=== PATIENT | male | born 2000 | race Caucasian/White ===

== ENCOUNTER 2024-12-20 10:00 | Emergency (ER) | payer MEDICAID, SELFPAY ==
[2024-12-20 10:01] VITALS: BMI 27.3
[2024-12-20 11:01] VITALS: BP 124/86; PULSE 55; RESP 18; TEMP 36.9; O2SAT 98
--- NOTE | 2024-12-20 11:02 | EDNOTE_ITS ---
Upper Extremity Injury RME/HPI General Chief Complaint: Hand/Wrist Problems Stated Complaint: R HAND SWOLLEN X3 DAYS Time Seen by Provider: 12/20/24 10:25 Arrival date/time: 12/20/24 10:00 RME / HPI RME / HPI narrative: DR. LANE MAIN ED EVALUATION: 23 year old male with no past medical history presents to the Emergency Department with complaint of right hand pain with bruising for 3 days. He states that 3 days ago he was closing the back door of his car and he hit his hand. He thought it was just a bruise then but after 3 days it still hurts, especially on the palmar aspect area between the right wrist and thumb area. Related Data Allergies Allergy/AdvReac Type Severity Reaction Status Date / Time ceftriaxone Allergy Unknown Verified 12/20/24 10:04 Review of Systems Review of Systems Systems Reviewed: All systems reviewed, normal except as documented Past Medical History Social History SMOKING STATUS: Never smoker SUBSTANCE USE: does not use ALCOHOL: Never ED Exam Narrative Physical exam: GENERAL APPEARANCE: alert and oriented x 4, well-developed, well-nourished, no acute distress VITALS: All vitals were reviewed and the pulse ox is 98% on room air, which is normal according to my interpretation. HEENT: Normocephalic, atraumatic; pupils equal, round, reactive to light; EOMI; mucous membranes pink, moist; oropharynx clear NECK: Supple LUNGS: CTABL; no wheezes, no rales, no rhonchi HEART: Regular rate, regular rhythm; normal S1, S2; no murmurs ABDOMEN: non distended; normal BS; soft, no tenderness, no guarding, no rebound; no masses, no organomegaly, no hernia BACK: no CVA tenderness EXTREMITIES: right hand echymosis of the thenar eminence and positive snuffbox tenderness. FROM. NV is intact. NEUROLOGIC: awake; alert and oriented x4; cranial nerves II-XII grossly intact; no focal sensory or motor deficits PSYCHIATRIC: appropriate mood and affect SKIN: warm, dry, normal color; no rashes Course Quality Measures none Orders Category Date Time Status XR hand comp RT min 3V Stat Exams 12/20/24 11:03 Completed XR wrist comp RT min 3V Stat Exams 12/20/24 11:03 Completed HYDROcodone*/APAP 5/325 [[place] 5/325] Med 12/20/24 11:06 Discontinued 1 tab PO X1 ONE Ibuprofen Tab [Motrin Tab] Med 12/20/24 11:06 Discontinued 600 mg PO X1 ONE Vital Signs Vital signs: Vital Signs Temperature 98.5 F 12/20/24 11:01 Pulse Rate 55 L 12/20/24 11:01 Respiratory Rate 18 12/20/24 11:01 Blood Pressure 124/86 H 12/20/24 11:01 Pulse Oximetry (%) 98 12/20/24 11:01 Extremity Injury MDM Narrative MDM Narrative:: Tatiana Gutierres am scribing for and in the presence of Dr. Lane. Patient data External records reviewed:: None (no previous visits) Clinical information provided by:: patient Social determinants that could affect healthcare access:: none Patient has the following chronic illnesses:: Denies any PMHx, surgeries, daily medications, or known allergies. How is presenting disease/condition affected by chronic disease/condition?: no chronic disease Evaluation data The following diagnostics were reviewed and interpreted by me:: radiology exam(s) Lab and/or radiology exams considered but not ordered:: none Interpretation Summary: Procedure(s): XR hand comp RT min 3V Accession Number(s): [id number] cc: Aman Rivas MD; Jo Lane MD~ Examination: Hand, right 3 views Technique: Hand AP, oblique, lateral 3 views Date and time of exam: December 21, 2019 5:11 AM Indications: Injury to the hand 2 days ago, hand pain Findings: No acute fracture No dislocation No foreign body Impression: No acute fracture Dictated By: Aman Rivas MD Procedure(s): XR wrist comp RT min 3V Accession Number(s): [id number] cc: Aman Rivas MD; Jo Lane MD~ Examination: Wrist, right 3 views Technique: Wrist AP, oblique, lateral 3 views Date and time of exam: December 20, 2024, 11:10 AM Indications: Injury to the wrist 2 days ago, wrist pain. Findings: No acute fracture No dislocation No foreign body Impression: No acute fracture Dictated By: Aman Rivas MD Medications / Prescriptions Medications or Prescriptions considered but not ordered:: none Medication administrations:: Medication Administration History Discontinued Medications Hydrocodone Bitart/Acetaminophen (Hydrocodone/[place] 5/325 Tablet) 1 tab PO X1 ON E Stop: 12/20/24 11:07 Last Admin: 12/20/24 11:19 Dose: 1 tab Documented By: JAIME Ibuprofen (Ibuprofen Tab 600 Mg Tablet) 600 mg PO X1 ONE Stop: 12/20/24 11:07 Last Admin: 12/20/24 11:18 Dose: 600 mg Documented By: JAIME see above Consultations Consultation(s) initiated? (list below): No Diagnosis Upper Extremity Injury Differential Diagnosis: sprain and strain of wrist, fracture of wrist, finger sprain and dislocation of finger Most likely diagnosis given after review of the tests above:: Contusion of hand Admission Indicated Admission indicated?: not indicated Admission Request Was there a request for admission?: No Disposition Plan Disposition Plan: Discharge Discharge Attestation Discharge Attestation: The patient and all family members were given an opportunity to ask questions and understood the discharge instructions. Discharge instructions specifically effects, indications for sooner follow up or return to the emergency department, and the expected course of current diagnosis. Patient condition: Stable Discharge Plan Plan Patient Disposition: HOME (Self Care) Prescriptions/Referrals Referrals: Jam Mcbride MD [Primary Care Provider] - In 1 week Problem List Clinical Impression: Contusion of hand Patient/Caregiver Discharge Instructions Education Materials: ED Hand Contusion Print Language: Brune[place] Stand Alone Forms: Christ[facility] Award Info., Patient Portal Info Letter
[2024-12-20] MEDS: IBUPROFEN TAB 600 MG TABLET PO (11:18)
[2024-12-20] MEDS: HYDROcodone/APAP 5/325 TABLET 1 TAB PO (11:19)
== END 2024-12-20 12:34 | disposition home or self-care (01) ==
PROVIDERS: Emergency Provider Emergency Medicine; PCP Family Medicine
DX: S60.221A Contusion of right hand, initial encounter (principal); S69.91XA Unspecified injury of right wrist, hand and finger(s), initial encounter; W22.8XXA Striking against or struck by other objects, initial encounter; Y92.810 Car as the place of occurrence of the external cause
CPT/HCPCS: 73110; 73130; 99283; A9270